=== PATIENT | female | born 1995 | race Caucasian/White ===

== ENCOUNTER 2022-01-05 18:06 | Outpatient (CLI) | payer OTHER, SELFPAY ==
[2022-01-07 10:59] LABS: Free T4 Free Thyroxine* 0.83 ng/dL (0.70-1.85)
== END 2022-01-05 18:07 | disposition home or self-care (01) ==
PROVIDERS: PCP Family Medicine; Visit Provider Family Medicine
DX: Z01.419 Encounter for gynecological examination (general) (routine) without abnormal findings (principal); E03.9 Hypothyroidism, unspecified; R53.83 Other fatigue; F41.9 Anxiety disorder, unspecified
CPT/HCPCS: 84439; 84443

== ENCOUNTER 2022-02-02 17:57 | Outpatient (CLI) | payer OTHER, SELFPAY ==
[2022-02-02 23:55] LABS: Free T4 Free Thyroxine* 0.88 ng/dL (0.70-1.85)
== END 2022-02-02 17:58 | disposition home or self-care (01) ==
LOC: FRMREF 17:57
PROVIDERS: PCP Family Medicine; Visit Provider Family Medicine
DX: E03.9 Hypothyroidism, unspecified (principal)
CPT/HCPCS: 84439; 84443

== ENCOUNTER 2022-03-25 10:27 | Outpatient (CLI) | payer OTHER, SELFPAY ==
[2022-03-25 12:32] LABS: INR 1.03 (0.91-1.10); Prothrombin Time 14.1 Seconds
[2022-03-25 12:33] LABS: Partial Thromboplastin Time* 27 Seconds (23-33)
[2022-03-29 09:16] LABS: von WillebrandFactorAntigen 116 % (52-214); vonWillebrandFactorActivityRCF 97 % (51-215)
== END 2022-03-25 10:28 | disposition home or self-care (01) ==
PROVIDERS: PCP Family Medicine; Visit Provider Obstetrics & Gynecology
DX: R23.3 Spontaneous ecchymoses (principal)
CPT/HCPCS: 85240; 85245; 85246; 85610; 85730

== ENCOUNTER 2022-11-20 08:17 | Outpatient (CLI) | payer OTHER, SELFPAY | END 2022-11-20 08:18 | disposition home or self-care (01) | PROVIDERS: PCP Family Medicine; Visit Provider Family Medicine | DX: E03.9 Hypothyroidism, unspecified (principal); N92.6 Irregular menstruation, unspecified; R53.1 Weakness; R35.89 Other polyuria | CPT/HCPCS: 80053; 84439; 84443; 86618 ==

== ENCOUNTER 2022-11-27 07:01 | Outpatient (CLI) | payer OTHER, SELFPAY ==
--- NOTE | 2022-11-27 07:15 | CRLHL7_ITS ---
For Patients: As a result of the Century Cures Act, medical imaging exams and procedure reports are released immediately into your electronic medical record. You may view this report before your referring provider. If you have questions, please contact your health care provider. INDICATION: Weakness. Vision changes. TECHNIQUE: Brain MRI with contrast. The following sequences were obtained: Sagittal T1 weighted sequence. DWI and ADC mapping sequences. Sagittal FLAIR sequence. Axial FLAIR and JOSE T2 weighted sequences. T1 weighted post-contrast sequence(s). 15 cc of Dotarem gadolinium based contrast agent was used. COMPARISON: None. FINDINGS: No evidence of acute ischemia. No evidence of acute or chronic intracranial blood products. No mass or pathologic intracranial enhancement. No intracranial signal abnormality. No hydrocephalus or extra-axial collections. The pituitary gland, parasellar structures and optic chiasm are normal. Posterior fossa is normal. All the major intracranial vascular structures demonstrate normal flow-related signal. The orbital contents are normal. No calvarial or skull base marrow signal abnormality. No obstructive sinus disease. No extracranial soft tissue findings. IMPRESSION: 1. No significant intracranial pathology. Dictated by Jhonny Guerrero MD @ 11/28/2022 7:34:16 PM (Electronically Signed)
== END 2022-11-27 07:02 | disposition home or self-care (01) ==
LOC: MRI 07:02
PROVIDERS: PCP Family Medicine; Visit Provider Family Medicine
DX: R53.1 Weakness (principal); R51.9 Headache, unspecified
CPT/HCPCS: 70553; A9575

== ENCOUNTER 2023-03-16 07:00 | Outpatient (CLI) | payer OTHER, SELFPAY | END 2023-03-16 07:01 | disposition home or self-care (01) | LOC: FRMREF 07:01 | PROVIDERS: PCP Family Medicine; Visit Provider Family Medicine | DX: E03.9 Hypothyroidism, unspecified (principal) | CPT/HCPCS: 84439; 84443 ==

== ENCOUNTER 2023-04-16 08:50 | Outpatient (REF) | payer OTHER, SELFPAY | END 2023-04-16 08:51 | disposition home or self-care (01) | LOC: NFLDREF 08:50 | PROVIDERS: PCP Family Medicine; Referring Provider Family Medicine; Visit Provider Family Medicine | DX: E03.8 Other specified hypothyroidism (principal); E06.3 Autoimmune thyroiditis | CPT/HCPCS: 84439; 84443 ==

== ENCOUNTER 2024-03-30 12:55 | Outpatient (CLI) | payer OTHER, SELFPAY | END 2024-03-30 12:56 | disposition home or self-care (01) | PROVIDERS: PCP Family Medicine; Visit Provider Family Medicine | DX: E03.8 Other specified hypothyroidism (principal); E06.3 Autoimmune thyroiditis; G89.29 Other chronic pain; M79.671 Pain in right foot | CPT/HCPCS: 80053; 80061; 84443 ==

== ENCOUNTER 2024-09-11 13:51 | Outpatient (CLI) | payer OTHER, SELFPAY ==
--- NOTE | 2024-09-11 14:00 | CRLHL7_ITS ---
For Patients: As a result of the Century Cures Act, medical imaging exams and procedure reports are released immediately into your electronic medical record. You may view this report before your referring provider. If you have questions, please contact your health care provider. Indication: PAINFUL PALPABLE LUMP Technique: Grayscale and color Doppler ultrasound of the right inguinal soft tissues performed. Comparison: None Findings: Right inguinal lymph node is present which measures 11 x 4 x 16 millimeters. Cortex measures 2.4 millimeters. Normal central fatty hilum. Normal internal vascularity. Impression: Reactive right inguinal lymph node. Dictated by Mark Vanegas MD @ 09/12/2024 6:46:52 AM (Electronically Signed)
== END 2024-09-11 13:52 | disposition home or self-care (01) ==
LOC: US 13:52
PROVIDERS: PCP Family Medicine; Visit Provider Family Medicine
DX: R19.09 Other intra-abdominal and pelvic swelling, mass and lump (principal); R59.0 Localized enlarged lymph nodes
CPT/HCPCS: 76882

== ENCOUNTER 2024-10-03 08:20 | Outpatient (CLI) | payer OTHER, SELFPAY ==
--- NOTE | 2024-10-03 09:00 | CRLHL7_ITS ---
For Patients: As a result of the Century Cures Act, medical imaging exams and procedure reports are released immediately into your electronic medical record. You may view this report before your referring provider. If you have questions, please contact your health care provider. Indication: ENLARGED LYMPH NODES. Technique: CT Abdomen/Pelvis 85CC ISOVUE 370 intravenous contrast AND WATER PREP Please note that all CT scans at this facility use dose modulation, iterative reconstruction, and/or weight-based dosing when appropriate to reduce radiation dose to as low as reasonably achievable. Comparison: Ultrasound 09/11/2024 Findings: Lung bases are clear. The liver is within normal limits. Normal gallbladder. The spleen is unremarkable. Normal adrenal glands and kidneys. Normal pancreas. Bladder normal. IUD in the uterus. Normal ovaries. No bowel obstruction or free air. No free fluid. Normal appendix. No enlarged lymph nodes. Impression: No intra-abdominal or intrapelvic adenopathy. Normal inguinal lymph nodes. No suspicious findings. Please note that all CT scans at this facility use dose modulation, iterative reconstruction, and/or weight-based dosing when appropriate to reduce radiation dose to as low as reasonably achievable. Dictated by Mark Vanegas MD @ 10/03/2024 10:14:13 AM (Electronically Signed)
--- NOTE | 2024-10-03 09:15 | CRLHL7_ITS ---
For Patients: As a result of the Century Cures Act, medical imaging exams and procedure reports are released immediately into your electronic medical record. You may view this report before your referring provider. If you have questions, please contact your health care provider. Indication: Headaches. Technique: Noncontrast sagittal T1, axial FLAIR, T2, diffusion weighted sequences are provided. Compared to prior study from November 27, 2022 Findings: The ventricles, sulci and gyri are normal size, shape and contour for age. The midline structures are centrally located with no evidence of shift. There are no suspicious intra or extra-axial fluid collections. No region of restricted diffusion. Expected flow voids in the cavernous carotids and basilar artery. Impression: 1. Stable, no radiographic evidence of acute intracranial abnormalities. Dictated by Kareem Gibson MD @ 10/03/2024 1:29:34 PM (Electronically Signed)
== END 2024-10-03 08:21 | disposition home or self-care (01) ==
PROVIDERS: PCP Family Medicine; Visit Provider Family Medicine
DX: R51.9 Headache, unspecified (principal); R59.9 Enlarged lymph nodes, unspecified
CPT/HCPCS: 70551; 74177; Q9967